=== PATIENT | male | born 1955 | race Caucasian/White ===

== ENCOUNTER 2019-11-08 23:25 | Emergency (ER) | payer OTHER ==
[~2019-11-08] VITALS: Ht 177.8 cm; Wt 96.6 kg
[2019-11-08] MEDS ORDERED: KETOROLAC TROMETHAMINE 60 MG/2 ML VIAL IM ONE (23:30)
--- NOTE | 2019-11-08 23:34 | Emergency Department Note ---
History of Present Illnes History of Present Illness Chief Complaint: Genitourinary History of Present Illness This is a 63 year old male . Historian: Patient Onset (how long ago): day(s) Radiation: Reports abdomen, Reports flank (R) Severity: moderate Onset quality: sudden Duration (how long): hour(s) Timing of current episode: constant Progression: worsening Chronicity: new Context: Reports recent illness Relieving factors: none Exacerbating factors: none Treatments prior to arrival: none Past Medical/Family History Physician Review I have reviewed the patient's past medical and family history. Any updates have been documented here. Past Medical History Recent Fever: No Clinical Suspicion of Infectio: No New/Unexplained Change in Ment: No Past Medical History: Diabetes Other Medical History: kidney stones Other Surgery: KIDNEY STENTS LITHOTRIPSY Social History Smoking Cessation: Never Smoker Alcohol Use: None Any Illegal Drug Use: No Other Last Tetanus: UNK Review of Systems Review of Systems Constitutional: Reports no symptoms EENTM: Reports no symptoms Cardiovascular: Reports no symptoms Respiratory: Reports no symptoms Gastrointestinal: Reports nausea Genitourinary: Reports pain Musculoskeletal: Reports no symptoms Integumentary: Reports no symptoms Neurological: Reports no symptoms Psychological: Reports no symptoms Endocrine: Reports no symptoms Hematological/Lymphatic: Reports no symptoms Physical Exam Related Data Allergies: Coded Allergies: No Known Drug Allergies (Verified Allergy, Mild, 11/04/09) Triage Vital Signs Vital Signs Date Time Temp Pulse Resp B/P (MAP) Pulse Ox O2 Delivery O2 Flow Rate FiO2 11/08/19 23:30 97.8 69 16 152/99 100 Room Air Vital signs reviewed: Yes Physical Exam CONSTITUTIONAL Constitutional: Present well-developed, Present well-nourished HENT HENT: Present normocephalic, Present atraumatic, Present oropharynx clear/moist, Present nose normal HENT L/R: Present left ext ear normal, Present right ext ear normal EYES Eyes: Reports PERRL, Reports conjunctivae normal NECK Neck: Present ROM normal PULMONARY Pulmonary: Present effort normal, Present breath sounds normal CARDIOVASCULAR Cardiovascular: Present regular rhythm, Present heart sounds normal, Present capillary refill normal, Present normal rate GASTROINTESTINAL Abdominal: Present soft, Present tender, Present right CVA tenderness GENITOURINARY Genitourinary: Present exam deferred SKIN Skin: Present warm, Present dry MUSCULOSKELETAL Musculoskeletal: Present ROM normal NEUROLOGICAL Neurological: Present alert, Present oriented x 3, Present no gross motor or sensory deficits PSYCHOLOGICAL Psychological: Present mood/affect normal, Present judgement normal Results Imaging Imaging results reviewed: Yes Impressions [place] [id number] Patient Name: LUCAS LOZA MR #: [id number] : 1955 Age/Sex: 63/M Req #: [id number] Adm Physician: Ordered by: DENITA SALAZAR DO Report #: [id number] Location: ER Room/Bed: Procedure: [id number] CT/CT ABDOMEN/PELVIS WO Exam Date: 11/08/19 Exam Time: 2345 REPORT STATUS: Signed EXAMINATION: CT of the abdomen and pelvis without contrast. TECHNIQUE: Spiral CT images of the abdomen and pelvis were performed from the lung bases to the lesser trochanters. No intravenous contrast was given per renal stone protocol. Coronal and sagittal reformatted images were obtained. COMPARISON: CT abdomen and pelvis without contrast 05/05/2019 CLINICAL HISTORY:Right flank pain for 2 days, kidney stone DISCUSSION: ABSENCE OF INTRAVENOUS CONTRAST DECREASES SENSITIVITY FOR DETECTION OF FOCAL LESIONS AND VASCULAR PATHOLOGY. ABDOMEN/PELVIS: LOWER THORAX: Mild atherosclerotic calcification of the aortic valves and coronary arteries. HEPATOBILIARY: Normal hepatic size and contour. Diffusely decreased attenuation of the hepatic parenchyma, worse in the right lobe, consistent with steatosis. No focal lesions. No intra or extrahepatic biliary ductal dilation. GALLBLADDER: Multiple peripherally calcified stones are again seen in the gallbladder lumen, with the largest measuring approximately 1.0 cm. No wall thickening or pericholecystic fluid. SPLEEN: No splenomegaly. PANCREAS: No focal masses or ductal dilatation. ADRENALS: No adrenal nodules. KIDNEYS/URETERS: Right: 1.0 cm partially obstructing calculus in the distal right ureter just proximal to the UVJ (series 3, image 171). This calculus was more proximally located on prior exam. 0.8 cm nonobstructing calculus is noted in the distal ureter just proximal to the above-described stone (series 3, image 166). These result in mild right hydroureter and hydronephrosis. Multiple (at least 8) nonobstructing calculi are noted in the right kidney, ranging in size from punctate to 4 mm, with the largest noted in the superior pole (series 3, image 59 and inferior pole (series 3, image 84). ( No contour abnormalities. Mild right perinephric stranding increased since the prior exam. Left: No ureteral calculi, hydronephrosis or obstruction. Multiple (at least 8) nonobstructing calculi are noted in the left kidney, ranging in size from punctate to 4 mm, with the largest located in the inferior pole (series 3, image 82). Mild cortical scarring in the left kidney. No other contour abnormalities. No significant perinephric stranding. PELVIC ORGANS/BLADDER: Bladder is decompressed, without focal lesions or calculi. Prostate is unremarkable. PERITONEUM/RETROPERITONEUM: No free air or fluid. LYMPH NODES: No intra-abdominal,retroperitoneal, pelvic or inguinal lymphadenopathy. VESSELS: Atherosclerotic calcification of the abdominal aorta, predominantly at the origin of the SMA (series 3, image 68 and sagittal image 69). GI TRACT: No bowel dilation or evidence of obstruction. Appendix is well identified and normal in caliber. No pericolonic inflammatory changes. BONES AND SOFT TISSUES: No aggressive lytic or suspicious focal sclerotic lesions. Bilateral fat-containing hernias. IMPRESSION: 1. 1.0 cm and 0.8 cm calculi in the distal right ureter just proximal to the UVJ which result in mild right hydroureter and hydronephrosis. Increased right perinephric stranding when compared to prior exam. 2. Multiple bilateral nonobstructing calculi, ranging in size from punctate to 4 mm. 3. Cholelithiasis, without CT evidence of cholecystitis. 4. Diffuse hepatic steatosis. Signed by: Dr. Miya Pagan M.D. on 11/09/2019 12:17 AM Dictated By: MIYA PAGAN MD Transcribed By: BRIAN on 11/09/1916 COPY TO: DENITA SALAZAR DO~ Assessment & Plan Medical Decision Making MDM Diff Dx : pyelonephritis, kidney stone, UTI, urologic cancer. Assessment & Plan Final Impression: (1) Right kidney stone Depart Disposition: HOME, SELF-CARE Medications in the ED Ketorolac Tromethamine 60 mg ONCE ONCE IM ; Start 11/08/19 at 23:30; Stop 11/08/19 at 23:31; Status UNV DENITA SALAZAR DO Nov 08, 2019 23:34
[2019-11-08] MEDS ORDERED: ONDANSETRON HCL INJ 2MG/ML 2ML 2 MG/ML VIAL ONE (23:40)
[2019-11-09] MEDS ORDERED: ONDANSETRON HCL INJ 2MG/ML 2ML 2 MG/ML VIAL IM STA (00:13)
--- NOTE | 2019-11-09 00:20 | Diagnostic Imaging Report ---
EXAMINATION: CT of the abdomen and pelvis without contrast. TECHNIQUE: Spiral CT images of the abdomen and pelvis were performed from the lung bases to the lesser trochanters. No intravenous contrast was given per renal stone protocol. Coronal and sagittal reformatted images were obtained. COMPARISON: CT abdomen and pelvis without contrast 05/05/2019 CLINICAL HISTORY:Right flank pain for 2 days, kidney stone DISCUSSION: ABSENCE OF INTRAVENOUS CONTRAST DECREASES SENSITIVITY FOR DETECTION OF FOCAL LESIONS AND VASCULAR PATHOLOGY. ABDOMEN/PELVIS: LOWER THORAX: Mild atherosclerotic calcification of the aortic valves and coronary arteries. HEPATOBILIARY: Normal hepatic size and contour. Diffusely decreased attenuation of the hepatic parenchyma, worse in the right lobe, consistent with steatosis. No focal lesions. No intra or extrahepatic biliary ductal dilation. GALLBLADDER: Multiple peripherally calcified stones are again seen in the gallbladder lumen, with the largest measuring approximately 1.0 cm. No wall thickening or pericholecystic fluid. SPLEEN: No splenomegaly. PANCREAS: No focal masses or ductal dilatation. ADRENALS: No adrenal nodules. KIDNEYS/URETERS: Right: 1.0 cm partially obstructing calculus in the distal right ureter just proximal to the UVJ (series 3, image 171). This calculus was more proximally located on prior exam. 0.8 cm nonobstructing calculus is noted in the distal ureter just proximal to the above-described stone (series 3, image 166). These result in mild right hydroureter and hydronephrosis. Multiple (at least 8) nonobstructing calculi are noted in the right kidney, ranging in size from punctate to 4 mm, with the largest noted in the superior pole (series 3, image 59 and inferior pole (series 3, image 84). ( No contour abnormalities. Mild right perinephric stranding increased since the prior exam. Left: No ureteral calculi, hydronephrosis or obstruction. Multiple (at least 8) nonobstructing calculi are noted in the left kidney, ranging in size from punctate to 4 mm, with the largest located in the inferior pole (series 3, image 82). Mild cortical scarring in the left kidney. No other contour abnormalities. No significant perinephric stranding. PELVIC ORGANS/BLADDER: Bladder is decompressed, without focal lesions or calculi. Prostate is unremarkable. PERITONEUM/RETROPERITONEUM: No free air or fluid. LYMPH NODES: No intra-abdominal,retroperitoneal, pelvic or inguinal lymphadenopathy. VESSELS: Atherosclerotic calcification of the abdominal aorta, predominantly at the origin of the SMA (series 3, image 68 and sagittal image 69). GI TRACT: No bowel dilation or evidence of obstruction. Appendix is well identified and normal in caliber. No pericolonic inflammatory changes. BONES AND SOFT TISSUES: No aggressive lytic or suspicious focal sclerotic lesions. Bilateral fat-containing hernias. IMPRESSION: 1. 1.0 cm and 0.8 cm calculi in the distal right ureter just proximal to the UVJ which result in mild right hydroureter and hydronephrosis. Increased right perinephric stranding when compared to prior exam. 2. Multiple bilateral nonobstructing calculi, ranging in size from punctate to 4 mm. 3. Cholelithiasis, without CT evidence of cholecystitis. 4. Diffuse hepatic steatosis. Signed by: Dr. Mj Pagan M.D. on 11/09/2019 12:17 AM
[2019-11-13] MEDS ORDERED: JANUVIA100 MG PO (10:17)
[2019-11-13] MEDS ORDERED: FLOMAX0.4 MG PO (10:17)
[2019-11-13] MEDS ORDERED: ALLOPURINOL100 MG PO (10:17)
[2019-11-13] MEDS ORDERED: FARXIGA10 MG PO (10:17)
[2019-11-13] MEDS ORDERED: METFORMIN HCL500 MG PO (10:17)
== END 2019-11-09 00:43 | disposition home or self-care (01) ==
LOC: ER 23:45
DX: N20.0 Calculus of kidney (principal); K80.20 Calculus of gallbladder without cholecystitis without obstruction; M54.5 Low back pain; R10.9 Unspecified abdominal pain; E11.9 Type 2 diabetes mellitus without complications; K76.0 Fatty (change of) liver, not elsewhere classified
CPT/HCPCS: 74176; 99283; J1885; J2405

== ENCOUNTER → 2019-11-17 | Outpatient (CLI) | payer OTHER ==
[2019-11-13 15:38] LABS: ANION GAP 13.6 mmol/L (8-16); CALCIUM 9.8 mg/dL (8.4-10.2); CREATININE, SERUM 1.82 mg/dL (0.72-1.25); POTASSIUM 4.6 mmol/L (3.5-5.1)
[~2019-11-17] MED LIST: ALLOPURINOL100 MG PO; FARXIGA10 MG PO; FLOMAX0.4 MG PO; JANUVIA100 MG PO; METFORMIN HCL500 MG PO
--- NOTE | 2019-11-17 08:43 | Diagnostic Imaging Report ---
ADDENDUM #1 Addendum: The 5 mm radiopaque density projecting over the right bladder/pelvis may also correspond to a 5 mm right pelvic phlebolith seen on CT dated 11/08/2019 (series 3, image 175). Signed by: Dr. Mj Pagan M.D. on 11/17/2019 9:14 AM ORIGINAL REPORT Exam: Abdominal film Clinical History: Kidney stones Comparison: CT abdomen and pelvis 11/08/2019 DISCUSSION: Frontal view of the abdomen shows a nonobstructive bowel gas pattern with mild amount of retained stool, predominantly in the ascending colon..There are no dilated, air-filled loops of bowel. 3-4 mm oval radiopaque density projecting over the posterior aspect of the right 11th rib likely represents the previously visualized nonobstructing calculus in the right superior pole. No other radiopaque densities project over the renal shadows or expected course of the ureters. A 5 mm rounded radiopaque densities projecting over the right bladder/pelvis has no central lucency and may represent one of the previously visualized distal ureteral stones. Two 5-mm rounded radiopacity projecting over the left aspect of the pelvis with central lucencies correspond to phleboliths noted on CT. No acute bone abnormality. IMPRESSION: 1. 3-4 mm nonobstructing calculus in the right renal superior pole. 2. No other radiopaque densities project over the renal shadows or expected course of the ureters. Specifically, no radiopaque densities correspond to the previously visualized right distal ureteral calculi on CT. 2. A rounded radiopaque density projecting over the right pelvis may represent a recently passed stone as it has no central lucency. Other radiopaque densities projecting over the left pelvis are likely phleboliths The staff physician below has personally reviewed this exam on the date of dictation. Signed by: Dr. Mj Pagan M.D. on 11/17/2019 8:40 AM
== END ==
LOC: OR 06:46 → RAD 06:46 → EDSTATUS 07:00
PROVIDERS: ATTEND Urology
DX: N20.1 Calculus of ureter (principal); Z53.09 Procedure and treatment not carried out because of other contraindication; Z01.812 Encounter for preprocedural laboratory examination; Z01.818 Encounter for other preprocedural examination
CPT/HCPCS: 36415; 74018; 80048; 88300; 93005; U0002

== ENCOUNTER → 2020-07-01 | Outpatient (CLI) | payer OTHER | LOC: RAD 10:23 | PROVIDERS: ATTEND Urology | DX: N20.0 Calculus of kidney (principal) | CPT/HCPCS: 74018 ==

== ENCOUNTER → 2020-07-17 | Day surgery (SDC) | payer OTHER ==
[2020-07-12 11:48] LABS: ANION GAP 15.6 mmol/L (8-16); CALCIUM 9.4 mg/dL (8.4-10.2); CREATININE, SERUM 1.71 mg/dL (0.72-1.25); POTASSIUM 3.6 mmol/L (3.5-5.1)
[~2020-07-17] MED LIST changes: +CEFTRIAXONE SOD 1 GM VIAL ONE; +DEXAMETHASONE SOD PHOS INJ 4 MG/ML VIAL ONE; +FENTANYL CITRATE/PF 100MCG/2 ML INJ ONE; +LIDOCAINE HCL 2% LOCAL INJ 5 ML SDV VIAL INJ ONE; +MIDAZOLAM HCL 2 MG/2 ML VIAL ONE; +ONDANSETRON HCL INJ 2MG/ML 2ML 2 MG/ML VIAL ONE; +PROPOFOL IV EMULSION 10 MG/ML 20 ML VIAL ONE; +SEVOFLURANE INHAL SOLN 250 ML PEN BTL ONE; +SODIUM CHLORIDE 0.9% 50ML 50 ML ONE
[2020-07-17 08:55] VITALS: BP 120/84
== END | disposition home or self-care (01) ==
LOC: OR 05:27
PROVIDERS: ATTEND Urology
DX: N20.0 Calculus of kidney (principal); R00.1 Bradycardia, unspecified; E11.9 Type 2 diabetes mellitus without complications; K21.9 Gastro-esophageal reflux disease without esophagitis; Z01.810 Encounter for preprocedural cardiovascular examination; Z01.812 Encounter for preprocedural laboratory examination; Z20.822 Contact with and (suspected) exposure to COVID-19; Z79.84 Long term (current) use of oral hypoglycemic drugs
CPT/HCPCS: 36415 ×2; 50590; 80048; 82948; 93005; J0696; J1100; J2001; J2250; J2405; J2704; J3010; U0002